=== PATIENT | female | born 1945 | race Caucasian/White ===

== ENCOUNTER → 2017-02-25 12:07 | Outpatient (CLI) | payer MEDICARE | END | disposition home or self-care (01) | LOC: D.MAMMO 12:07 | DX: Z12.31 Encounter for screening mammogram for malignant neoplasm of breast (principal) ==

== ENCOUNTER 2019-08-19 14:44 | Emergency (ER) | payer MEDICARE, MEDICAID ==
[~2019-08-19] VITALS: Ht 157.5 cm; Wt 81.4 kg
[2019-08-19 14:46] VITALS: Ht 157.5 cm; Wt 81.4 kg
[2019-08-19] MEDS ORDERED: CYMBALTA60 MG (14:57)
[2019-08-19] MEDS ORDERED: DEXILANT60 MG (14:58)
[2019-08-19] MEDS ORDERED: KLONOPIN1 MG (14:58)
[2019-08-19] MEDS ORDERED: BUSPAR10 MG (14:58)
[2019-08-19] MEDS ORDERED: LATUDA80 MG (14:58)
[2019-08-19] MEDS ORDERED: BUTRANS1 EAC3 (14:59)
[2019-08-19 15:22] LABS: BASOPHILS 0.3 % (0-2); EOSINOPHILS 3.3 % (0-7); HEMATOCRIT 34.8 % (36.0-48.0); HEMOGLOBIN 11.1 g/dL (12-16); IMMATURE GRANULOCYTES 0.2 % (0-5); MCH 26.5 pg (26.0-34.0); MCHC 31.9 g/dL (31.0-37.0); MCV 83.1 fL (80.0-100.0); MEAN PLATELET VOLUME 9.9 fL (7.4-10.4); MONOCYTES 7.1 % (2-11); NEUTROPHILS 73.1 % (40-80); PLATELET COUNT 240 10x3/uL (130-400); RBC 4.19 10x6/uL (4.00-5.40); RDW 12.6 % (11.5-14.5); WBC 6.4 10x3/uL (4.8-10.8)
[2019-08-19 15:34] LABS: ANION GAP 8.2 mmol/L (8-16); CALCIUM 8.5 mg/dL (8.5-10.1); CARBON DIOXIDE 31.9 mmol/L (21.0-32.0); CREATININE - SERUM 0.8 mg/dL (0.6-1.3); POTASSIUM - SERUM 4.1 mmol/L (3.5-5.1)
[2019-08-19 15:37] LABS: APTT 29.6 SECONDS (22.8-39.4); INR 0.93 (0.85-1.17); PROTIME 12.5 SECONDS (11.6-15.0)
[2019-08-19 15:40] LABS: ALBUMIN 3.4 g/dL (3.4-5.0); BILIRUBIN - TOTAL 0.2 mg/dL (0.2-1.3); MAGNESIUM - SERUM 1.9 mg/dL (1.8-2.4)
[2019-08-19] MEDS ORDERED: CLARITIN 10 MG10 MG PO (16:06)
[2019-08-19] MEDS ORDERED: AMOXICILLIN875 MG PO (16:06)
[2019-08-19 16:39] VITALS: BP 128/86
== END 2019-08-19 16:35 | disposition home or self-care (01) ==
LOC: D.ER 14:44
PROVIDERS: Family Medicine
DX: H66.91 Otitis media, unspecified, right ear (principal); Z96.29 Presence of other otological and audiological implants

== ENCOUNTER 2019-08-27 09:00 | Outpatient (CLI) | payer MEDICARE ==
[2019-08-19 14:46] VITALS: BMI 32.8
[~2019-08-27 09:00] MED LIST: AMOXICILLIN875 MG PO; BUSPAR10 MG; BUTRANS1 EAC3; CLARITIN 10 MG10 MG PO; CYMBALTA60 MG; DEXILANT60 MG; KLONOPIN1 MG; LATUDA80 MG
== END 2019-08-27 10:00 | disposition home or self-care (01) ==
LOC: D.MAMMO 09:00
PROVIDERS: ATTEND Family Medicine
DX: Z12.31 Encounter for screening mammogram for malignant neoplasm of breast (principal)

== ENCOUNTER 2019-09-21 09:00 | Outpatient (CLI) | payer MEDICARE ==
[2019-08-19 14:46] VITALS: BMI 32.8
== END 2019-09-21 10:00 | disposition home or self-care (01) ==
LOC: D.MAMMO 09:00
PROVIDERS: ATTEND Family Medicine
DX: R92.8 Other abnormal and inconclusive findings on diagnostic imaging of breast (principal)

== ENCOUNTER 2019-10-07 09:00 | Outpatient (CLI) | payer MEDICARE ==
[2019-08-19 14:46] VITALS: BMI 32.8
== END 2019-10-07 10:00 | disposition home or self-care (01) ==
LOC: D.MAMMO 09:00
PROVIDERS: ATTEND Family Medicine
DX: N63.10 Unspecified lump in the right breast, unspecified quadrant (principal)

== ENCOUNTER 2019-10-26 07:10 | Day surgery (SDC) | payer MEDICARE ==
[2019-10-22 10:43] LABS: ANION GAP 10.6 mmol/L (8-16); CALCIUM 8.5 mg/dL (8.5-10.1); CARBON DIOXIDE 33.1 mmol/L (21.0-32.0); CREATININE - SERUM 0.9 mg/dL (0.6-1.3); POTASSIUM - SERUM 3.7 mmol/L (3.5-5.1)
[2019-10-22 10:45] LABS: APTT 30.3 SECONDS (22.8-39.4); INR 0.85 (0.85-1.17); PROTIME 11.6 SECONDS (11.6-15.0)
[2019-10-22 10:48] LABS: HEMATOCRIT 38.4 % (36.0-48.0); HEMOGLOBIN 11.9 g/dL (12-16); LYMPHOCYTES 20.5 % (15-50); MCH 24.8 pg (26.0-34.0); MEAN PLATELET VOLUME 9.6 fL (7.4-10.4); NEUTROPHILS 68.9 % (40-80); PLATELET COUNT 278 10x3/uL (130-400); RDW 13.7 % (11.5-14.5)
[~2019-10-26] VITALS: Ht 157.5 cm; Wt 84.4 kg
[2019-10-26 07:38] VITALS: BP 168/82; Ht 157.5 cm; Wt 84.4 kg
--- NOTE | 2019-10-26 08:45 | NUR ---
Patient was scheduled for a right breast lymphoscintigraphy. Consent was obtained. Physician entered the room at 0815. Time out was called at 0820. Area was prepped and 500uCi Tc-99m Tilmanocept was injected subcutaneously into the right breast at [address] Strickland. Imaging followed.
[2019-10-26] MEDS ORDERED: HYDROCODON-ACE1 EA10 PO (16:02)
--- NOTE | 2019-10-26 16:48 | NUR ---
1648 MEET ANESTHESIA DISCHARGE CRITERIA
--- NOTE | 2019-10-27 15:40 | OP ---
PATIENT NAME: EKESHA ALONZO MEDICAL RECORD: [id number] :45 LOCATION:D.OPS ADMISSION DATE: SURGEON: OG CASTILLO MD DATE OF OPERATION: 10/26/2019 PREOPERATIVE DIAGNOSES: 1. Right breast cancer. 2. Hypertension. 3. Bipolar disorder. POSTOPERATIVE DIAGNOSES: 1. Right breast cancer. 2. Hypertension. 3. Bipolar disorder. PROCEDURE: Needle local right lumpectomy with sentinel lymph node biopsy. SURGEON: Og Castillo MD REPORT OF PROCEDURE: Preoperatively, the patient underwent lymphoscintigraphy which showed uptake in the patient's right axilla and also needle localization of a mass in the upper outer quadrant of the right breast. The patient was taken to the operating room. She had right chest and axilla prepped and draped in sterile fashion. A transverse incision was made overlying the upper outer quadrant of the right breast. Electrocautery was used to dissect through the subcutaneous tissues and we followed around the patient's indwelling wire and took out a large core of tissue. This tissue was marked appropriately and sent off to mammography, which showed that the clip was then placed and the specimen was adequate. The wound was then irrigated out with sterile water. The subcutaneous tissues were infused with 5 mL of 0.25% Marcaine with epinephrine and closed with subcutaneous 5-0 Monocryl and an inner layer of interrupted 3-0 Vicryl. We approached the patient's right axilla. A transverse incision was made overlying an area which had increased uptake by the Neoprobe. Using this Neoprobe, we were able to access an area which was dissected by going through the axillary fascia. Once we got inside the axilla, we were able to pull up 2 lymph nodes. The first one registered a reading of 350 and the second one registered a reading of 550. After we had these 2 large lymph nodes removed, then, I felt around the axilla and did not feel any grossly positive lymphadenopathy and the remainder of the lymph node not have any evidence of radiotracer uptake. We then irrigated out this wound with sterile water. The subcutaneous tissues were infused with 5 mL of 0.25% Marcaine with epinephrine and then closed with subcutaneous running 5-0 Monocryl and an inner layer of subcutaneous interrupted 3-0 Vicryl. The wounds were then dressed appropriately. COMPLICATIONS: None. CONDITION: Stable. ANESTHESIA: General endotracheal and local. BLOOD LOSS: Minimal. TRANSINT:[id number] Voice Confirmation ID: [id number] DOCUMENT ID: [id number] OPERATIVE REPORT [id number] KEESHA ALONZO CHRISTIAN MD at 1540 CC: JOHNNY COVINGTON MD [id number] DICTATION DATE: 10/26/19 1608 TELEPHONE BETTING CLERK: 10/27/19 0023 [facility] 10/26/19 [place] [id number] [place] [id number]
== END 2019-10-26 18:05 | disposition home or self-care (01) ==
LOC: D.OPS 07:10
PROVIDERS: Anesthesiology; ATTEND Surgery
DX: C50.911 Malignant neoplasm of unspecified site of right female breast (principal); I10 Essential (primary) hypertension; F31.9 Bipolar disorder, unspecified

== ENCOUNTER 2020-03-01 18:30 | Outpatient (CLI) | payer MEDICARE ==
[2019-10-26 07:38] VITALS: BMI 34.1
[~2020-03-01 18:30] MED LIST changes: +HYDROCODON-ACE1 EA10 PO
== END 2020-03-01 23:59 | disposition home or self-care (01) ==
LOC: D.MAMMO 18:30
PROVIDERS: ATTEND Internal Medicine Medical Oncology
DX: C50.411 Malignant neoplasm of upper-outer quadrant of right female breast (principal)

== ENCOUNTER 2020-11-20 09:15 | Outpatient (CLI) | payer MEDICARE ==
[2019-10-26 07:38] VITALS: BMI 34.1
== END 2020-11-20 23:59 | disposition home or self-care (01) ==
LOC: D.MAMMO 09:15
PROVIDERS: ATTEND Family Medicine
DX: R92.8 Other abnormal and inconclusive findings on diagnostic imaging of breast (principal)